=== PATIENT | male | born 1950 | race Caucasian/White ===

== ENCOUNTER → 2017-12-09 | Outpatient (CLI) | payer BC, OTHER ==
[~2017-12-09] MED LIST: AVODART0.5 MG PO; DIFLUCAN200 MG PO; HYZAAR 50-12.51 EACH PO; MEROPENEM-500 MG/50 IVPB
[2017-12-09 10:31] LABS: CREATININE 0.9 mg/dL (0.7-1.3)
== END ==
LOC: CAT 09:54
PROVIDERS: Family Medicine
DX: M47.896 Other spondylosis, lumbar region (principal); M41.86 Other forms of scoliosis, lumbar region; J98.4 Other disorders of lung

== ENCOUNTER → 2017-12-19 | Outpatient (CLI) | payer OTHER, BC | LOC: CAT 10:14 | DX: K76.0 Fatty (change of) liver, not elsewhere classified (principal) ==

== ENCOUNTER → 2017-12-29 | Outpatient (CLI) | payer BC, OTHER ==
[~2017-12-29] VITALS: Ht 182.9 cm; Wt 70.3 kg
[2017-12-29 12:20] VITALS: BP 106/82
== END | disposition home or self-care (01) ==
LOC: SPEC 11:01
DX: Z48.03 Encounter for change or removal of drains (principal); K57.00 Diverticulitis of small intestine with perforation and abscess without bleeding; I10 Essential (primary) hypertension; K21.9 Gastro-esophageal reflux disease without esophagitis; Z90.49 Acquired absence of other specified parts of digestive tract; Z98.890 Other specified postprocedural states; Z79.899 Other long term (current) drug therapy

== ENCOUNTER → 2018-12-22 | Outpatient (CLI) | payer OTHER | LOC: NUC 10:55 | DX: M81.0 Age-related osteoporosis without current pathological fracture (principal); I10 Essential (primary) hypertension ==

== ENCOUNTER → 2021-01-08 | Outpatient (CLI) | payer OTHER | LOC: CAT 13:21 | PROVIDERS: ATTEND Surgery | DX: K57.30 Diverticulosis of large intestine without perforation or abscess without bleeding (principal); Z87.19 Personal history of other diseases of the digestive system; J98.11 Atelectasis; M51.36 Other intervertebral disc degeneration, lumbar region ==

== ENCOUNTER → 2021-05-07 | Outpatient (CLI) | payer OTHER | LOC: RAD 14:28 | DX: S70.02XA Contusion of left hip, initial encounter (principal); M16.12 Unilateral primary osteoarthritis, left hip; K57.30 Diverticulosis of large intestine without perforation or abscess without bleeding; X58.XXXA Exposure to other specified factors, initial encounter; Y93.89 Activity, other specified; Y92.89 Other specified places as the place of occurrence of the external cause; Y99.8 Other external cause status ==